=== PATIENT | female | born 1935 | race Caucasian/White ===

== ENCOUNTER 2017-03-30 06:30 | Inpatient (IN) | payer MEDICARE, OTHER ==
[~2017-03-30] VITALS: Ht 160 cm; Wt 93.0 kg
--- NOTE | ~2017-03-30 | OR ---
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 TAPE KELLER OPERATOR: Frida Gonsales APRN PROCEDURE: Removal of odontoid screw. This was more difficult than would otherwise be ascertained due to the patient's scarred in anatomy just 6 weeks after initial placement with an early failure of the construct and pseudarthrosis. DESCRIPTION OF PROCEDURE: After gaining informed consent, the patient was taken to the operative theater, the patient was continued under general anesthesia. She was turned supine on the [place] table, and all pressure points purposely padded prior to performing the procedure. She was prepped and draped in sterile fashion. The prior wound was opened. There was extensive and significant scar tissue. I was able to delineate a prior operative plane very cautiously down to the anterior spinal column. Extreme caution was undertaken during this dissection to try to minimize any stretching in the area in the possible plane of the recurrent laryngeal nerve as well as the esophagus or carotid artery on the left. After very cautious dissection, the screw was discerned. This was then removed utilizing the Omnidrive screw removal kit. At this point, the attention was turned to closure. Pristine hemostasis was obtained, and a KEYA drain was daylighted out. There was no sign of damage to the esophagus, and esophageal probe was manipulated during the case when I was at the plane of the screw head to be able to evaluate whether the esophagus was within the field, this was not noted. At this point, attention was then turned to closure. The wound was closed with simple inverted interrupted 2-0 Vicryl in the hypodermic tissue and subcuticular 3-0 Stratafix on the skin. A KEYA drain was daylighted out and ADMIT: 03/30/2017 RM/LOC: 502 [facility] MR#: [id number] [address] [address] SARKIS BARTHOLOMEW [address] [place] [address] Operative/Delivery Room Report SEX: F AGE: 81 : [address] Ms[address] Gonsales was assisted with suction, retraction, and closure at the end of the case. COMPLICATIONS: None. ESTIMATED BLOOD LOSS: Charted. SPECIMEN: None per the patient request. Odontoid screw was being washed and sterilized and returned to the patient. Cresencio Bryan MD/ rashid JOB #: [id number] CC: Cresencio Bryan, Attending Physician Griffin Umana, Family Physician
[~2017-03-30 06:30] MED LIST: ASCORBIC ACID500 MG PO; COUMADIN4 MG PO; CYMBALTA30 MG PO; DAILY MULTIPLE1 EAC1 PO; FEOSOL-DPS325 MG PO; GLUCOPHAGE-DPS500 MG PO; MAALOX DPS30 ML PO; TAMBOCOR100 MG PO; TOPROL XL100 MG PO; TYLENOL DPS325 MG PO; ULTRAM DPS50 MG PO; VITAMIN D31000 UNIT PO; VITAMIN D400 UNI1 PO; ZESTRIL DPS10 MG PO; ZOCOR DPS10 MG PO
--- NOTE | 2017-04-07 13:17 | OR ---
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 PROCEDURES: 1. Cervical hemilaminectomy 1 to 2 with decortication of bone for arthrodesis posteriorly cervical 1 to 2 utilizing structural autograft harvested from a separate incision on the iliac crest as well as morcellated allograft. 2. Placement of bilateral lateral mass screw cervical 1 and bilateral pedicle screws cervical 2 utilizing stereotaxy were possible. 3. Intraoperative fluoroscopy with physician interpretation of films. 4. Intraoperative neuromonitoring. MINE WEDGE SAWYER: Frida Gonsales APRN This case was substantially more difficult than usual secondary to the patient's thoracic curvature and body habitus despite attempted flexion of her neck. There was very limited room between the occiput to the C2, and the posterior arch of C1 was congenitally or degeneratively abnormal. DESCRIPTION OF PROCEDURE: After gaining informed consent, the patient was taken out theater, placed under general endotracheal anesthesia in supine position. A time-out was utilized to ascertain the correct site and side of surgery as well as other pertinent patient historical information. Counts were obtained at the beginning and at the end of the case with no change betwixt two. Antibiotics were given within 1 hour of incision. The patient was underwent neurological monitoring on baseline. She was then flipped prone onto the [place]roy table in the Kelly pins with extreme caution being taken during this maneuver. She was clamped in place and placed in as much flexion as was reasonable. Once this was done, a time-out was utilized to ascertain the correct site and side of surgery as well as other pertinent patient historical information. An incision was fashioned in the posterior region from the suboccipital region into the neck. This was then taken down through the nuchal fascia through down to the spinous processes. 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 C2 was delineated. There was not much room between C2 and cervical ones posterior arch, which was somewhat abnormal along the midline. Once this was evaluated, pristine hemostasis was obtained. Self-retaining retractors were placed, and the musculature was dissected off cervical 2 and cervical 1 widely revealing access for the planned screw placement. Once this was done, the ADMIT: 03/30/2017 RM/LOC: 502 [facility] MR#: [id number] [id number] [address] SARKIS BARTHOLOMEW [address] [place] [address] Operative/Delivery Room Report SEX: F AGE: 81 : 1935 stereotactic frame reference array was put onto C2, and the CT scan was obtained for stereotaxy. At this point, utilizing stereotaxy at cervical 1, screw was evaluated on the left. The bleeding was controlled in the inferior aspect of the lateral portion of the posterior arch, was drilled down to the lateral mass. This was then hand drilled at this point, sounded to make sure there is bony anatomy and a partially threaded screw was placed. The cervical nerve roots did not appear to be damaged, and this was not tied off or transected. Once this screw was in, the monitoring and motor exams were fine in the arms and somewhat reduced starting in the right leg and then turning to the left. A wake-up test was recommended by the neurologist assessing the neuromonitoring, and at this point, out of abundance of caution, the wound was temporarily closed with Ethibond and loraine, and the patient was awakened. During this process, she did move all 4 extremities. At this time, everything was undraped to be able to better assess the situation. Once this was done, an attempt was made to place the patient into flexion again, and the same position was not able to be acceptably undertaken. She was then turned back onto the regular bed and then back into the prone position to better orient the patient on the Rodrigo frame. Once this was completed, everything was clamped back into place and prepped and draped in sterile fashion again. The incision was then reopened. Due to the patient's positioning, it was quite difficult to access the CT scan or stereotaxy. At this point, the rest of the screws were placed with fluoroscopic guidance. The anatomy was somewhat abnormal. Hemilaminotomies were fashioned on the right and left between cervical 2 and 3, so I could evaluate the cervical 2 and 3 via pedicle of cervical 2. I was able to evaluate this and then bilaterally this area was decorticated and then very cautiously hand drilled feeling the what felt like cancellous bone drilling in and sounding with no sign of breach medially or laterally and bone at depth. Screws were then placed after vancomycin powder coating them. Attention was then turned to placing the screw on the right at C1. In a similar fashion, the C2 with the exception of the lack of stereotaxy. The arch was followed down laterally toward the lateral mass. Once this was all visualized, pristine hemostasis was obtained. The inferior aspect of the arch was drilled down meeting this to the lateral mass and then this was hand drilled and sounded as the other screws had been and a screw was placed. CT scan was obtained, but really had suboptimal imaging from the CT scanner and was unable to fully evaluate the area. An incision was then fashioned in the left over the iliac crest. This was then taken down through the fascia to the iliac crest. Osteotomes were used to resect a piece of iliac crest to buttress in between the posterior arch of cervical 1 to cervical 2. This had a lot of very good cancellous bone, and a cortical cancellous aspect was taken. This wound was then closed with 0 Vicryl simple inverted, interrupted 2-0 Vicryl and subcuticular StrataFix on the skin. The cancellous bone was then collapsed down, and this was placed over top of the decorticated posterior elements from cervical 1 and cervical 2 very cautiously making certain to not disrupt the posterior [place] bony anatomy with the exception of drilling this area down. This bone was then retained in place with the posterior cross connector after placing the ADMIT: 03/30/2017 RM/LOC: 502 [facility] MR#: [id number] [address] [address] SARKIS BARTHOLOMEW [address] [place] [address] Operative/Delivery Room Report SEX: F AGE: 81 : 1935 posterior aspect of the hardware for a posterior and posterolateral arthrodesis. Once this was completed, the wound was closed with simple interrupted 0 Vicryl in thoracodorsal fascia, simple inverted interrupted 2-0 Vicryl in the hypodermic tissue and loraine on the skin after daylighting out the KEYA and sewing that in place. At this point, there have been no sensory change, although there really was not much in the way of neuromonitoring capability after the initial wake up test. At this time, attention was turned to closure and turning the patient onto the bed supine. Ms. Gonsales was assisted with suction, retraction, and closure at the end of the case. COMPLICATIONS: None. ESTIMATED BLOOD LOSS: Charted. SPECIMEN: None. DISPOSITION: Prepared for the odontoid screw removal. Cresencio Brayn MD/ rashid JOB #: [id number] CC: Cresencio Bryan, Attending Physician Griffin Umana, Family Physician
== END 2017-04-02 11:05 | disposition short-term general hospital (02) | DRG 908 ==
LOC: WOR 06:30 → 5MS 06:30 → WOR 06:30 → 5MS 17:10
PROVIDERS: ADMIT Neurological Surgery
PROC: 0RG107J Fusion of Cervical Vertebral Joint with Autologous Tissue Substitute, Posterior Approach, Anterior Column, Open Approach (ICD-10-PCS; principal; 2017-03-30)
PROC: 0QB30ZZ Excision of Left Pelvic Bone, Open Approach (ICD-10-PCS; principal; 2017-03-30)
PROC: 0PP304Z Removal of Internal Fixation Device from Cervical Vertebra, Open Approach (ICD-10-PCS; principal; 2017-03-30)
PROC: 3E0234Z Introduction of Serum, Toxoid and Vaccine into Muscle, Percutaneous Approach (ICD-10-PCS; 2017-04-02)
DX: T85.628A Displacement of other specified internal prosthetic devices, implants and grafts, initial encounter (principal); S12.110K Anterior displaced Type II dens fracture, subsequent encounter for fracture with nonunion; M40.40 Postural lordosis, site unspecified; Z23 Encounter for immunization